=== PATIENT | male | born 1980 | race Caucasian/White ===

== ENCOUNTER → 2018-05-17 09:10 | Outpatient (CLI) | payer BC, SELFPAY ==
[2018-05-17 09:09] VITALS: BMI 26.9
--- NOTE | 2018-05-17 09:13 | RAD_ITS ---
STUDY: X-RAY - RIGHT HAND, ATTENTION THUMB REASON FOR EXAM: Pain after hyperextension injury last week. TECHNIQUE: 3 view(s) of the finger were obtained. COMPARISON: None. FINDINGS: Normal metacarpal. There is an osteophyte at the proximal phalangeal base without joint space narrowing of the metacarpophalangeal joint. There is a minimally displaced comminuted intra-articular fracture of the ulnar aspect of the head/neck of the proximal phalanx. Normal distal phalanx. Normal interphalangeal joint. There is soft tissue swelling. RAD/Finger(s) Min 2 Views IMPRESSION: Fracture of the first proximal phalanx. Electronically Signed: Raj Vogt MD at 10:05 EDT Tel , Service support ,
== END ==
PROVIDERS: Referring Provider Physician Assistant Surgical; Visit Provider Physician Assistant Surgical
DX: S60.011A Contusion of right thumb without damage to nail, initial encounter (principal)
CPT/HCPCS: 73140

== ENCOUNTER → 2024-12-06 | Outpatient (CLI) | payer BC, SELFPAY ==
--- NOTE | 2024-12-06 09:08 | RAD_ITS ---
PROCEDURE: KNEE 4 OR MORE VIEWS 12/06/2024 REASON FOR EXAM: LEFT KNEE PAIN SPRAIN OF UNSPECIFIED SITE OF LEFT KNEE, INITIAL E TECHNIQUE: Procedure Code: RADKN Modality: DX Procedure: KNEE 4 OR MORE VIEWS Laterality: Left COMPARISON: None FINDINGS: Bones: No fracture Joints: Minimal joint space narrowing patellofemoral joint. Effusion: Small suprapatellar joint effusion Soft tissues: Soft tissues are unremarkable. Other: No foreign body RAD/Knee 4 or More Views IMPRESSION: Minimal osteoarthritis patellofemoral joint. Small suprapatellar joint effusio n. Reading Location: [id number]
== END | disposition home or self-care (01) ==
LOC: RAD 09:00
PROVIDERS: Referring Provider Nurse Practitioner Family; Visit Provider Nurse Practitioner Family
DX: S83.92XA Sprain of unspecified site of left knee, initial encounter (principal)
CPT/HCPCS: 73564